=== PATIENT | female | born 1940 | race Caucasian/White ===

== ENCOUNTER 2017-09-29 18:35 | Emergency (ER) | payer OTHER ==
[~2017-09-29] VITALS: Ht 162.6 cm; Wt 80.8 kg
[~2017-09-29 18:35] MED LIST: ASPI-183 PO; BIOT1SUB SL; CULT10CA4 PO; ESTR1 PO; HYDR25TA5 PO; LOTR5CAP2 PO; LOVA40TA PO; MEDR2.5T2 PO; MEGA RED PO; META28.34 PO; MULT-6 PO; PAXI10TA8 PO; POTA550T2 PO; TRAM50TA PO
[2017-09-29 18:53] VITALS: BP 106/67; PULSE 87; RESP 16; TEMP 98.9; O2SAT 96
--- NOTE | 2017-09-29 19:02 | PD ---
HPI Chief Complaint: Head Injury Time Seen by Provider: 19:02 Travel History International Travel<30 days: No Contact w/Intl Traveler<30days: No Traveled to known affect area: No History of Present Illness HPI 77-year-old female came to the emergency room with history of headache, fogginess and some dizziness that has been going on for past almost one week. Patient vomited couple times as well during this time. Patient says that about 1 week ago she had fallen because she tripped and landed on the back of her head. All the symptoms are started since then. Patient is on Eliquis and is concerned if she may have had any intracranial bleed. Her back of the head has been sore although she does not feel any bumps. Vital signs were stable. No history of any syncopal episode. [facility]LY [facility] Past Medical History Narrative Medical List of her past medical, surgical, social and family history is reviewed from the nursing note. Hx Anticoagulant Therapy: Yes (ELIQUIS) Arthritis: Yes Depression: Yes Cancer: No Cardiovascular Problems: Yes (HTN, AFIB) High Cholesterol: Yes Diabetes: No Diminished Hearing: No Glaucoma: No Hepatitis: No Hiatal Hernia: No Hypertension: Yes Thyroid Disease: No Dilation and Curettage (D&C): Yes Past Surgical History Section: Yes Gynecologic Surgery: Yes (D & C) Joint Replacement: Yes Pacemaker: No Other Surgery: Yes Social History Alcohol Use: Yes (WINE DAILY) Tobacco Use: No (QUIT 10 YRS) Substance Use: No Allergies-Medications (Allergen,Severity, Reaction): Coded Allergies: propranolol (Unverified Adverse Reaction, Intermediate, GASTRITIS, 09/29/17 ) Comments List of her allergies reviewed from the nursing note Reported Meds & Prescriptions Reported Meds & Active Scripts Active Reported One Daily-Minerals (Multiple Vitamins W/ Minerals) 1 Tab 1 Tab PO DAILY Eliquis (Apixaban) 5 Mg Tab 5 Mg PO BID Lovastatin 40 Mg Tab 40 Mg PO DAILY Lotrel (Amlodipine-Benazepril) 5-10 Mg Cap 1 Cap PO DAILY Hydrochlorothiazide 25 Mg Tab 25 Mg PO DAILY Metamucil Smooth Texture (Psyllium Hydrophilic Mucilloid) 28.3 % Pow 1 Scoop PO DAILY 1 rounded TEASPOON in 8 oz of liquid at the first sign of irregularity. Culturelle (Lactobacillus Rhamnosus (GG)) 10 B Cell Cap 1 Cap PO DAILY Narrative Medication List of her home medications reviewed from the nursing note. Review of Systems Except as stated in HPI: all other systems reviewed are Neg Neurologic: Positive: Dizziness, Syncope Physical Exam Narrative GENERAL: Awake, alert, mild distress SKIN: Focused skin assessment warm/dry. HEAD: Atraumatic. Normocephalic. EYES: Pupils equal and round. No scleral icterus. No injection or drainage. ENT: No nasal bleeding or discharge. Mucous membranes pink and moist. NECK: Trachea midline. No JVD. No cervical point tenderness CARDIOVASCULAR: Regular rate and rhythm. No murmur appreciated. RESPIRATORY: No accessory muscle use. Clear to auscultation. Breath sounds equal bilaterally. GASTROINTESTINAL: Abdomen soft, non-tender, nondistended. Hepatic and splenic margins not palpable. MUSCULOSKELETAL: No obvious deformities. No clubbing. No cyanosis. No edema. NEUROLOGICAL: Awake and alert. No obvious cranial nerve deficits. Motor grossly within normal limits. Normal speech. PSYCHIATRIC: Appropriate mood and affect; insight and judgment normal. Data Data Last Documented VS Vital Signs Date Time Temp Pulse Resp B/P (MAP) Pulse Ox O2 Delivery O2 Flow Rate FiO2 09/29/17 18:53 98.9 87 16 106/67 (80) [address] Brain W/O Iv Contrast(Rout) (09/29/17 ) Ed Discharge Order (09/29/17 20:51) MDM Medical Decision Making Medical Screen Exam Complete: Yes Emergency Medical Condition: Yes Medical Record Reviewed: Yes Differential Diagnosis Intracranial bleed, postconcussive headache Narrative Course 7:32 PM awaiting for the CT to be done and resulted. 8:[address] scan of the brain is negative for any intracranial bleed. I will discharge her home. Procedures EKG Prior to Arrival: No Diagnosis Primary Impression: Post-concussion headache Referrals: Primary Care Physician Additional Instructions: Drink lots of fluid, coffee and caffeinated beverages. Do not drink alcohol. Do not watch too much television, computer screen or smart phone screen and give rest to your eyes and brain. Follow-up with your primary care if symptoms do not improve in next 3-4 days. Limit taking Tylenol or Excedrin for headache. Take the medication instead prescribed to you for headache only if needed. Med/Other Pt SpecificInfo: Prescription(s) given Scripts Qkamikuvne-Cdedupyykcrhw-Fetlosyp (Fioricet) 50-300-40 Mg Cap 1 CAP PO Q4H Y for HEADACHE, #12 CAP 0 Refills Prov: Shannan Knox MD 09/29/17 Disposition: 01 DISCHARGE HOME Condition: Stable Shannan Knox MD September 29, 2017 19:02
[2017-09-29] MEDS ORDERED: APIX5TAB PO (19:11)
[2017-09-29] MEDS ORDERED: ONETAB22 PO (19:17)
--- NOTE | 2017-09-29 20:48 | RADRPT ---
EXAM DATE/TIME: 09/29/2017 19:42 [place] COMPARISON: No previous studies available for comparison. INDICATIONS : Patient fell hitting back of head one week ago, complains of headaches. RADIATION DOSE: 49.24 CTDIvol (mGy) MEDICAL HISTORY : Hypertension. Cardiovascular disease SURGICAL HISTORY : None. ENCOUNTER: Initial ACUITY: 1 week PAIN SCALE: 6/10 LOCATION: cranial TECHNIQUE: Multiple contiguous axial images were obtained of the head. Using automated exposure control and adj ustment of the mA and/or kV according to patient size, radiation dose was kept as low as reasonably a chievable to obtain optimal diagnostic quality images. DICOM format image data is available electro nically for review and comparison. FINDINGS: CEREBRUM: The ventricles are widened. No evidence of midline shift, mass lesion, hemorrhage or acute infarctio n. No extra-axial fluid collections are seen. POSTERIOR FOSSA: The cerebellum and brainstem are intact. The 4th ventricle is midline. The cerebellopontine angle i s unremarkable. EXTRACRANIAL: The visualized portion of the orbits is intact. SKULL: The calvaria is intact. No evidence of skull fracture. CONCLUSION: 1. No acute abnormality seen. 2. Atrophy. Capo Hemphill MD on September 29, 2017 at 20:44 Board Certified Radiologist. This report was verified electronically.
[2017-09-29] MEDS ORDERED: BUTA1CAP PO (20:53)
[2017-09-29 20:57] VITALS: BP 137/80; PULSE 78; RESP 18; O2SAT 97
== END 2017-09-29 21:06 | disposition home or self-care (01) ==
LOC: PHEFT 18:35
DX: F07.81 Postconcussional syndrome (principal); G44.309 Post-traumatic headache, unspecified, not intractable; I10 Essential (primary) hypertension; M19.90 Unspecified osteoarthritis, unspecified site; F32.9 Major depressive disorder, single episode, unspecified; I48.91 Unspecified atrial fibrillation; E78.00 Pure hypercholesterolemia, unspecified; Z87.891 Personal history of nicotine dependence; Z79.01 Long term (current) use of anticoagulants
CPT/HCPCS: 70450; 99283

== ENCOUNTER 2017-10-13 08:26 | Emergency (ER) | payer OTHER ==
[~2017-10-13] VITALS: Ht 162.6 cm; Wt 79.0 kg
[~2017-10-13 08:26] MED LIST changes: +APIX5TAB PO; -ASPI-183 PO; -BIOT1SUB SL; +BUTA1CAP PO; -ESTR1 PO; -MEDR2.5T2 PO; -MEGA RED PO; -MULT-6 PO; +ONETAB22 PO; -PAXI10TA8 PO; -POTA550T2 PO; -TRAM50TA PO
[2017-10-13 08:36] VITALS: BP 137/60; PULSE 98; RESP 18; TEMP 97.8; O2SAT 96
--- NOTE | 2017-10-13 08:54 | PD ---
HPI Chief Complaint: Pain: Acute or Chronic Time Seen by Provider: 08:52 Travel History International Travel<30 days: No Contact w/Intl Traveler<30days: No Traveled to known affect area: No History of Present Illness HPI Complaining of right foot pain worsening over the past 4 days that is worsening. Although the patient states that she does have severe arthritis and she usually receives shots to her feet this is a worse type of pain she has ever felt before. It also feels more like a burning pain and is very sensitive to touch. States allergy to propranolol Past medical history significant for wearing corrective lenses and bilateral hearing aids, hypercholesterolemia, atrial fibrillation on Eliquis, hypertension , PFSH Past Medical History Hx Anticoagulant Therapy: Yes (eliquis) Arthritis: Yes Atrial Fibrillation: Yes (on Eliquis) Depression: Yes Cancer: No Cardiovascular Problems: Yes High Cholesterol: Yes Diabetes: No Diminished Hearing: Yes (bilat hearing aids) Glaucoma: No Hepatitis: No Hiatal Hernia: No Hypertension: Yes Thyroid Disease: No : 4 Para: 3 Miscarriage: 1 Dilation and Curettage (D&C): Yes Past Surgical History Section: Yes Gynecologic Surgery: Yes (D & C) Joint Replacement: Yes Pacemaker: No Other Surgery: Yes Social History Alcohol Use: Yes (WINE DAILY) Tobacco Use: No (QUIT 2005) Substance Use: No Allergies-Medications (Allergen,Severity, Reaction): Coded Allergies: propranolol (Unverified Adverse Reaction, Intermediate, GASTRITIS, 10/13/17 ) Reported Meds & Prescriptions Reported Meds & Active Scripts Active Fioricet (Hxfnittilv-Kshdmifqwjkmr-Jsqkorff) 50-300-40 Mg Cap 1 Cap PO Q4H PRN Reported One Daily-Minerals (Multiple Vitamins W/ Minerals) 1 Tab 1 Tab PO DAILY Eliquis (Apixaban) 5 Mg Tab 5 Mg PO BID Lovastatin 40 Mg Tab 40 Mg PO DAILY Lotrel (Amlodipine-Benazepril) 5-10 Mg Cap 1 Cap PO DAILY Hydrochlorothiazide 25 Mg Tab 25 Mg PO DAILY Metamucil Smooth Texture (Psyllium Hydrophilic Mucilloid) 28.3 % Pow 1 Scoop PO DAILY 1 rounded TEASPOON in 8 oz of liquid at the first sign of irregularity. Culturelle (Lactobacillus Rhamnosus (GG)) 10 B Cell Cap 1 Cap PO DAILY Review of Systems General / Constitutional: No: Fever Eyes: No: Visual changes HENT: No: Headaches Cardiovascular: No: Chest Pain or Discomfort Respiratory: No: Shortness of Breath Gastrointestinal: No: Abdominal Pain Genitourinary: No: Dysuria Musculoskeletal: Positive: Pain (Right foot) Skin: No Rash Neurologic: No: Weakness Psychiatric: No: Depression Endocrine: No: Polydipsia Hematologic/Lymphatic: No: Easy Bruising Physical Exam Narrative GENERAL: SKIN: Warm and dry. HEAD: Atraumatic. Normocephalic. EYES: Pupils equal and round. No scleral icterus. No injection or drainage. ENT: No nasal bleeding or discharge. Mucous membranes pink and moist. NECK: Trachea midline. No JVD. CARDIOVASCULAR: Regular rate and rhythm. RESPIRATORY: No accessory muscle use. Clear to auscultation. Breath sounds equal bilaterally. GASTROINTESTINAL: Abdomen soft, non-tender, nondistended. MUSCULOSKELETAL: Extremities without clubbing, cyanosis, or edema. No obvious deformities. NEUROLOGICAL: Awake and alert. No obvious cranial nerve deficits. Motor grossly within normal limits. Five out of 5 muscle strength in the arms and legs. Normal speech. PSYCHIATRIC: Appropriate mood and affect; insight and judgment normal. Data Data Last Documented VS Vital Signs Date Time Temp Pulse Resp B/P (MAP) Pulse Ox O2 Delivery O2 Flow Rate FiO2 10/13/17 13:13 92 16 131/74 (93) 96 Room Air 10/13/17 08:36 97.8 Orders Orders Electrocardiogram (10/13/17 09:06) Basic Metabolic Panel (Bmp) (10/13/17 09:06) B-Type Natriuretic Peptide (10/13/17 09:06) Complete Blood Count With Diff (10/13/17 09:06) Prothrombin Time / Inr (Pt) (10/13/17 09:06) Act Partial Throm Time (Ptt) (10/13/17 09:06) Troponin I (10/13/17 09:06) Ecg Monitoring (10/13/17 09:06) Bilateral Bp Monitoring (10/13/17 09:06) Iv Access Insert/Monitor (10/13/17 09:06) Oximetry (10/13/17 09:06) Oxygen Administration (10/13/17 09:06) Sodium Chloride 0.9% Flush (Ns Flush) (10/13/17 09:15) Cta Runoff W Iv Contrast W 3d (10/13/17 ) Morphine Inj (Morphine Inj) (10/13/17 10:45) Potassium Chloride Eff (K-Lyte Cl Eff) (10/13/17 10:45) Iohexol 350 Inj (Omnipaque 350 Inj) (10/13/17 11:48) Morphine Inj (Morphine Inj) (10/13/17 13:15) Potassium Chloride Eff (K-Lyte Cl Eff) (10/13/17 13:15) Labs Laboratory Tests Test 10/13/17 09:40 White Blood Count 11.7 TH/MM3 Red Blood Count 4.15 MIL/MM3 Hemoglobin 13.3 GM/DL Hematocrit 38.9 % Mean Corpuscular Volume 93.9 FL Mean Corpuscular Hemoglobin 32.0 PG Mean Corpuscular Hemoglobin Concent 34.1 % Red Cell Distribution Width 13.4 % Platelet Count 461 TH/MM3 Mean Platelet Volume 7.9 FL Neutrophils (%) (Auto) 83.0 % Lymphocytes (%) (Auto) 9.1 % Monocytes (%) (Auto) 7.0 % Eosinophils (%) (Auto) 0.3 % Basophils (%) (Auto) 0.6 % Neutrophils # (Auto) 9.7 TH/MM3 Lymphocytes # (Auto) 1.1 TH/MM3 Monocytes # (Auto) 0.8 TH/MM3 Eosinophils # (Auto) 0.0 TH/MM3 Basophils # (Auto) 0.1 TH/MM3 CBC Comment DIFF FINAL Differential Comment Prothrombin Time 10.2 SEC Prothromb Time International Ratio 1.0 RATIO Activated Partial Thromboplast Time 24.1 SEC Blood Urea Nitrogen 21 MG/DL Creatinine 0.71 MG/DL Random Glucose 115 MG/DL Calcium Level 8.5 MG/DL Sodium Level 142 MEQ/L Potassium Level 2.9 MEQ/L Chloride Level 105 MEQ/L Carbon Dioxide Level 28.8 MEQ/L Anion Gap 8 MEQ/L Estimat Glomerular Filtration Rate 79 ML/MIN Troponin I LESS THAN 0.02 NG/ML B-Type Natriuretic Peptide 187 PG/ML [facility] Medical Decision Making Medical Screen Exam Complete: Yes Emergency Medical Condition: Yes Medical Record Reviewed: Yes Interpretation(s) Atrial fibrillation rhythm, rate around the 90s, no evidence of any ST elevation OR, however there are some significant Q waves on 3 and aVF as well as nonspecific ST-T wave changes Differential Diagnosis Neuropathy versus fracture versus arthritic pain versus arterial thromboembolism Narrative Course CBC shows reactive leukocytosis but without any left shift, no anemia, normal platelet count. Coagulation profile is within normal limits First set of cardiac enzymes are negative Kidney function is within normal limits Electrolytes are all within normal limits with exception of potassium at 2.9. This may be the cause of the patient's sharp crampy-like pain. CT of the aorta with runoff read by radiologist as no significant aortic occlusive disease or iliac inflow stenosis. Mild stenosis of the right anterior tibial and distal tibioperoneal arteries otherwise intact 3 vessel runoff to the feet bilaterally. Mild bilateral scattered SFA plaque without significant flow-limiting stenosis Diagnosis Primary Impression: Neuropathy Additional Impression: Symptomatic hypokalemia Patient Instructions: General Instructions, Hypokalemia (ED), Peripheral Neuropathy (ED) Scripts Oxycodone-Acetaminophen (Percocet) 5-325 mg Tab 1 TAB PO Q6H Y for PAIN, #12 TAB 0 Refills Prov: Lg Zarco MD 10/13/17 Potassium Chloride ER (Potassium Chloride ER) 20 Meq Tab 40 MEQ PO BID for Electrolyte Replacement for 5 Days, #20 TAB 0 Refills Prov: Lg Zarco MD 10/13/17 Disposition: 01 DISCHARGE HOME Condition: Stable Lg Zarco MD October 13, 2017 08:54
[2017-10-13] MEDS ORDERED: SODIUM CHLORIDE 0.9% FLUSH 10 ML FLUSH IVF PRN (09:15)
[2017-10-13 09:46] VITALS: RESP 16; O2SAT 96
[2017-10-13 09:51] LABS: AUTOMATED NEUTROPHIL # 9.7 TH/MM3 (1.8-7.7); BASOPHIL # 0.1 TH/MM3 (0-0.2); BASOPHIL % 0.6 % (0.0-2.0); EOSINOPHIL % 0.3 % (0.0-4.0); HEMATOCRIT 38.9 % (35.0-46.0); HEMOGLOBIN 13.3 GM/DL (11.6-15.3); LYMPH % 9.1 % (9.0-44.0); LYMPHOCYTE # 1.1 TH/MM3 (1.0-4.8); MEAN CELL VOLUME 93.9 FL (80.0-100.0); MEAN CORPUSCULAR HGB CONC 34.1 % (32.0-36.0); MEAN PLATELET VOLUME 7.9 FL (7.0-11.0); MONOCYTE # 0.8 TH/MM3 (0-0.9); PLATELET COUNT 461 TH/MM3 (150-450); RED BLOOD COUNT 4.15 MIL/MM3 (4.00-5.30); RED CELL DISTRIBUTION WIDTH 13.4 % (11.6-17.2); WHITE BLOOD COUNT 11.7 TH/MM3 (4.0-11.0)
[2017-10-13 09:52] VITALS: BP 121/62; PULSE 94; RESP 16; O2SAT 95
[2017-10-13 10:02] LABS: PROTHROMBIN TIME - PATIENT 10.2 SEC (9.8-11.6)
[2017-10-13 10:16] LABS: BICARBONATE 28.8 MEQ/L (21.0-32.0)
[2017-10-13 10:17] LABS: CALCIUM 8.5 MG/DL (8.5-10.1); GLUCOSE,RANDOM 115 MG/DL (74-106)
[2017-10-13 10:20] LABS: CHLORIDE 105 MEQ/L (98-107); CREATININE 0.71 MG/DL (0.50-1.00); GLOMERULAR FILTRATION RATE 79 ML/MIN (>89); SODIUM (NA) 142 MEQ/L (136-145)
[2017-10-13 10:30] LABS: BLOOD UREA NITROGEN 21 MG/DL (7-18); TROPONIN I LESS THAN 0.02 NG/ML (0.02-0.05)
[2017-10-13] MEDS ORDERED: POTASSIUM CHLORIDE 25 MEQ EFFERVESCENT TAB PO ONE ×2 (10:45→13:15)
[2017-10-13] MEDS ORDERED: MORPHINE SULFATE 2 MG/ML SYRINGE IV PUSH ONE ×2 (10:45→13:15)
[2017-10-13] MEDS ORDERED: IOHEXOL 350 MG/ML 10 ML VIAL (for RAD DIAG) IVCONTRAST ONE (11:48)
[2017-10-13 13:13] VITALS: BP 131/74; PULSE 92; RESP 16; O2SAT 96
--- NOTE | 2017-10-13 13:38 | RADRPT ---
EXAM DATE: 10/13/2017 1:01 PM EDT AGE/SEX: 77 years / Female INDICATIONS: Right foot pain. No injury. CLINICAL DATA: This is the patient's initial encounter. Patient reports that signs and symptoms have been present for 2 days and indicates a pain score of 10/10. MEDICAL/SURGICAL HISTORY: Cardiovascular disease. Hypertension. Arthritis. section. Bila teral knee replacements. RADIATION DOSE: 12.72 CTDI (mGy) COMPARISON: [facility], CT ABDOMEN & PELVIS W CONTRAST, 06/28/2010. . TECHNIQUE: Volumetric scanning was performed using a multi-row detector CT scanner during bolus infu jasvir of 100 ml Omnipaque 350 (iohexol) nonionic water-soluble contrast as a single exam dose. The data was post processed with a variety of visualization algorithms including full volume maximum inte nsity projection, multi-planar sliding thin slab reformation, curved planar reformation, and surface rendering techniques. Using automated exposure control and adjustment of the mA and/or kV according to patient size, radiation dose was kept as low as reasonably achievable to obtain optimal diagnostic quality images. FINDINGS: Angiographic Findings: Abdominal Aorta: Moderate distal aortic calcified plaque without significant flow-limiting stenosis or aneurysm. Renal Arteries: Single bilateral renal arteries with mild stenosis of the origins secondary to calcif ied plaque. Mesenteric Arteries: Bulky plaque at the origin of the celiac artery with resultant mild to moderate stenosis. Plaque at the origin of the SMA with resultant mild stenosis. SHANNA is patent. Right side: Inflow: Diffuse mild calcified plaque without significant flow-limiting stenosis. Internal iliac is p atent. External iliac is patent. Mild eccentric plaque in the proximal common femoral artery with mi ld stenosis. Outflow: The profunda is patent. Scattered calcified plaque in the SFA with mild stenosis distally ne ar the abductor canal. Popliteal artery is partially obscured by beam hardening artifact from knee ar throplasty. Visualized portions are patent. Runoff: Calcified plaque at the origin of the anterior tibial artery and in the distal tibioperoneal trunk with resultant mild stenosis. Otherwise, three-vessel runoff to the foot. Left side: Inflow: Diffuse mild calcified plaque without significant flow-limiting stenosis. Internal iliac is p atent. External iliac is patent. Minimal common femoral artery calcified plaque without stenosis. Outflow: The profunda is patent. Minimal scattered SFA plaque without significant flow-limiting steno sis. Popliteal artery is partially obscured by beam hardening artifact from knee arthroplasty. Visual ized portion are patent. Runoff: Three vessel runoff. General Findings: Evaluation is limited by arterial phase technique. LOWER LUNGS: Extreme lung bases are clear. LIVER: Visualized portions again demonstrate a 4.3 cm cyst in the posterior right lobe. SPLEEN: Homogeneous density without enlargement. PANCREAS: There is a stable 7 mm cystic lesion in the head of the pancreas. Pancreas is stable in ap pearance. KIDNEYS: Kidneys demonstrate symmetrical enhancement and are symmetrical in size without evidence fo r radiopaque renal calculi or hydronephrosis. ADRENAL GLANDS: Unremarkable. BOWEL/MESENTERY: Moderate sigmoid diverticulosis and scattered colonic diverticula. No significant a ssociated inflammatory change. Bowel is otherwise unremarkable. No free fluid or drainable fluid chriss ections. ABDOMINAL WALL: Intact. RETROPERITONEUM: No evidence of adenopathy in the retrocrural, para-aortic, or deep pelvic regions. BLADDER: Contours are smooth. REPRODUCTIVE: Uterus is not visualized and there is a pessary place. INGUINAL: The inguinal region is unremarkable without evidence of adenopathy. BONY STRUCTURES: Degenerative changes of the lower lumbar spine. Bilateral knee arthroplasties. CONCLUSION: 1. No significant aortic occlusive disease or iliac inflow stenosis. 2. Mild bilateral scattered SFA plaque without significant flow-limiting stenosis. 3. Mild stenosis of the right anterior tibial and distal tibial peroneal arteries. Otherwise, intact three-vessel runoff to the feet bilaterally. 4. 7 mm cystic lesion in the pancreatic head stable from 2016 CT exam but new since 2011 CT examinat ion. This lesion is too small to fully characterize but may reflect a pseudocyst from interval pancre atitis. Small low-grade cystic neoplasm cannot be excluded. 5. Additional ancillary findings, as above. Electronically signed by: Slim Belcher MD 10/13/2017 1:36 PM EDT
[2017-10-13] MEDS ORDERED: POTA-163 PO (13:58)
[2017-10-13] MEDS ORDERED: PERC5TAB12 PO (13:59)
[2017-10-13 14:00] VITALS: BP 124/72; PULSE 80; RESP 16; O2SAT 96
--- NOTE | 2017-10-14 08:32 | EKG ---
Date Performed: 10/13/2017 Time Performed: 09:27:28 PTAGE: 77 years EKG: ATRIAL FIBRILLATION INDETERMINATE AXIS CONSIDER NFERIOR MYOCARDIAL INFARCTION, AGE INDETERM INATE ABNORMAL ECG PREVIOUS TRACING : 12/03/2009 10.11 DOCTOR: Larry Mccain Interpretating Date/Time 10/14/2017 08:31:16
== END 2017-10-13 14:22 | disposition home or self-care (01) ==
LOC: PHED 08:26
DX: G62.9 Polyneuropathy, unspecified (principal); E87.6 Hypokalemia; R94.31 Abnormal electrocardiogram [ECG] [EKG]; E78.00 Pure hypercholesterolemia, unspecified; I48.91 Unspecified atrial fibrillation; I10 Essential (primary) hypertension; M19.90 Unspecified osteoarthritis, unspecified site; F32.9 Major depressive disorder, single episode, unspecified; Z87.891 Personal history of nicotine dependence
CPT/HCPCS: 75635; 80048; 83880; 84484; 85025; 85610; 85730; 93005; 96374; 96376; 99285; J2270; Q9967

== ENCOUNTER 2017-10-20 05:45 | Emergency (ER) | payer OTHER ==
[~2017-10-20] VITALS: Ht 162.6 cm; Wt 77.8 kg
[~2017-10-20 05:45] MED LIST changes: +PERC5TAB12 PO; +POTA-163 PO
[2017-10-20 05:57] VITALS: BP_SYST 102; BP_SYST 153; BP_DIAS 82; PULSE 102; RESP 18; TEMP 98.2; O2SAT 96
[2017-10-20 06:07] VITALS: BP_SYST 153; BP_SYST 156; BP_DIAS 82; BP_DIAS 86
--- NOTE | 2017-10-20 06:16 | PD ---
HPI Chief Complaint: Chest Pain Time Seen by Provider: 05:56 Travel History International Travel<30 days: No Contact w/Intl Traveler<30days: No Traveled to known affect area: No History of Present Illness HPI 77yo F with PMH of HTN, afib on eliquis presents to the ED with c/o chest pain today. Said it started in her right arm and then went to her right chest. Pain is sharp, intermittent. Associated with dizziness, sob and generalized weakness. Denies any fever, cough, n/v, abdominal pain, focal weakness or numbness. Said lightheadedness is worst with standing up and better lying down. Pt was just here for right foot pain 10/13/17 and her potassium was found to be low at 2.9 so was discharge with KCl and percocet. Said she took half of the percocet yesterday and helped a little. Pt was also here on 09/29 for head injury and had negative CT brain. Patient said she had a nuclear stress by Dr. Cortez on 10/11 and it was normal. PFSH Past Medical History Hx Anticoagulant Therapy: Yes (ELIQUIS) Arthritis: Yes Atrial Fibrillation: Yes (on Eliquis) Depression: Yes Cancer: No Cardiovascular Problems: Yes (AFIB) High Cholesterol: Yes Diabetes: No Diminished Hearing: Yes (bilat hearing aids) Glaucoma: No Hepatitis: No Hiatal Hernia: No Hypertension: Yes Respiratory: No Thyroid Disease: No : 4 Para: 3 Miscarriage: 1 Dilation and Curettage (D&C): Yes Past Surgical History Section: Yes Gynecologic Surgery: Yes (D & C) Joint Replacement: Yes Pacemaker: No Other Surgery: Yes Social History Alcohol Use: Yes (WINE DAILY) Tobacco Use: No (QUIT 2005) Substance Use: No Allergies-Medications (Allergen,Severity, Reaction): Coded Allergies: propranolol (Verified Adverse Reaction, Intermediate, GASTRITIS, 10/20/17) Reported Meds & Prescriptions Reported Meds & Active Scripts Active Percocet (Oxycodone-Acetaminophen) 5-325 mg Tab 1 Tab PO Q6H PRN Potassium Chloride ER (Potassium Chloride) 20 Meq Tab 40 Meq PO BID 5 Days Fioricet (Vsdmyvjpzh-Pkeovkgpskkpw-Tnwuzfvi) 50-300-40 Mg Cap 1 Cap PO Q4H PRN Reported One Daily-Minerals (Multiple Vitamins W/ Minerals) 1 Tab 1 Tab PO DAILY Eliquis (Apixaban) 5 Mg Tab 5 Mg PO BID Lovastatin 40 Mg Tab 40 Mg PO DAILY Lotrel (Amlodipine-Benazepril) 5-10 Mg Cap 1 Cap PO DAILY Hydrochlorothiazide 25 Mg Tab 25 Mg PO DAILY Metamucil Smooth Texture (Psyllium Hydrophilic Mucilloid) 28.3 % Pow 1 Scoop PO DAILY 1 rounded TEASPOON in 8 oz of liquid at the first sign of irregularity. Culturelle (Lactobacillus Rhamnosus (GG)) 10 B Cell Cap 1 Cap PO DAILY Review of Systems Except as stated in HPI: all other systems reviewed are Neg Physical Exam Narrative GENERAL: 77yo F in mild distress. SKIN: Focused skin assessment warm/dry. HEAD: Atraumatic. Normocephalic. EYES: Pupils equal and round at 3mm. EOMI. ENT: No nasal bleeding or discharge. Mucous membranes pink and moist. NECK: Trachea midline. No JVD. CARDIOVASCULAR: Regular rate and rhythm. No murmur appreciated. RESPIRATORY: No accessory muscle use. Clear to auscultation. Breath sounds equal bilaterally. GASTROINTESTINAL: Abdomen soft, non-tender, nondistended. MUSCULOSKELETAL: No obvious deformities. No clubbing. No cyanosis. No edema. NEUROLOGICAL: Awake and alert. No obvious cranial nerve deficits. Motor grossly within normal limits in all extremities. Sensation intact. Normal speech. PSYCHIATRIC: Appropriate mood and affect; insight and judgment normal. Data Data Last Documented VS Vital Signs Date Time Temp Pulse Resp B/P (MAP) Pulse Ox O2 Delivery O2 Flow Rate FiO2 10/20/17 09:45 10/20/17 09:28 18 10/20/17 08:43 85 97 Room Air 10/20/17 05:57 98.2 Orders Orders Basic Metabolic Panel (Bmp) (10/20/17 05:57) Complete Blood Count With Diff (10/20/17 05:57) Prothrombin Time / Inr (Pt) (10/20/17 05:57) Act Partial Throm Time (Ptt) (10/20/17 05:57) Troponin I (10/20/17 05:57) Chest, Single Ap (10/20/17 05:57) Bilateral Bp Monitoring (10/20/17 05:57) B-Type Natriuretic Peptide (10/20/17 06:01) Orthostatic Blood Pressure (10/20/17 06:35) Urinalysis - C+S If Indicated (10/20/17 06:35) Sodium Chlorid 0.9% 500 Ml Inj (Ns 500 M (10/20/17 06:45) Ketorolac Inj (Toradol Inj) (10/20/17 06:45) Potassium Chloride (Kcl) (10/20/17 07:00) Urine Culture (10/20/17 06:30) Troponin I (10/20/17 07:31) Ct Pulmonary Angiogram (10/20/17 07:31) Iohexol 350 Inj (Omnipaque 350 Inj) (10/20/17 08:08) Acetaminophen (Tylenol) (10/20/17 08:30) Electrocardiogram (10/20/17 05:54) Labs Laboratory Tests Test 10/20/17 06:00 10/20/17 06:30 10/20/17 08:40 White Blood Count 6.5 TH/MM3 Red Blood Count 4.56 MIL/MM3 Hemoglobin 14.1 GM/DL Hematocrit 43.0 % Mean Corpuscular Volume 94.3 FL Mean Corpuscular Hemoglobin 30.9 PG Mean Corpuscular Hemoglobin Concent 32.7 % Red Cell Distribution Width 13.3 % Platelet Count 399 TH/MM3 Mean Platelet Volume 8.5 FL Neutrophils (%) (Auto) 49.2 % Lymphocytes (%) (Auto) 38.5 % Monocytes (%) (Auto) 9.0 % Eosinophils (%) (Auto) 2.3 % Basophils (%) (Auto) 1.0 % Neutrophils # (Auto) 3.2 TH/MM3 Lymphocytes # (Auto) 2.5 TH/MM3 Monocytes # (Auto) 0.6 TH/MM3 Eosinophils # (Auto) 0.1 TH/MM3 Basophils # (Auto) 0.1 TH/MM3 CBC Comment DIFF FINAL Differential Comment Prothrombin Time 10.5 SEC Prothromb Time International Ratio 1.0 RATIO Activated Partial Thromboplast Time 26.1 SEC Blood Urea Nitrogen 16 MG/DL Creatinine 0.67 MG/DL Random Glucose 113 MG/DL Calcium Level 9.0 MG/DL Sodium Level 139 MEQ/L Potassium Level 3.4 MEQ/L Chloride Level 104 MEQ/L Carbon Dioxide Level 26.2 MEQ/L Anion Gap 9 MEQ/L Estimat Glomerular Filtration Rate 85 ML/MIN Troponin I LESS THAN 0.02 NG/ML LESS THAN 0.02 NG/ML B-Type Natriuretic Peptide 195 PG/ML Urine Collection Type CLEAN CATCH Urine Color YELLOW Urine Turbidity SL CLOUDY Urine pH 7.0 Urine Specific [place] 1.015 Urine Protein NEG mg/dL Urine Glucose (UA) NEG mg/dL Urine Ketones NEG mg/dL Urine Occult Blood SMALL Urine Nitrite NEG Urine Bilirubin NEG Urine Urobilinogen 0.2 MG/DL Urine Leukocyte Esterase SMALL Urine RBC 0-3 /hpf Urine WBC 9-14 /hpf Urine WBC Clumps FEW Urine Squamous Epithelial Cells > 8 /hpf Urine Amorphous Sediment FEW Urine Bacteria MOD /hpf Microscopic Urinalysis Comment CULTURE INDICATED Urine Collection Time 0630 [facility] Medical Decision Making Medical Screen Exam Complete: Yes Emergency Medical Condition: Yes Interpretation(s) EKG: Afib at 97bpm. Low voltage. Mild ST depression V5-V6. TWI III. Grossly unchanged from EKG from 11/2009 Differential Diagnosis ACS vs. arrhythmia vs. dehydration vs. electrolyte abnormality vs. UTI Narrative Course 77yo F here with atypical chest pain, dizziness and generalized weakness. Pt walked for about 5 steps and had to sit by down because she was feeling lightheaded. Said she did not notice if she had worsening sob or chest pain with walking. Said chest pain comes and goes on its own. CXR showed no active disease. Mildly tortuous aorta. Labs reviewed, no leukocytosis. H/H normal. BMP unremarkable. Troponin and BNP pending. Orthostatic vital signs pending. Will give NS IVF 500cc and toradol. Pt's chest pain is very atypical and she just had a negative stress test. Will sign out to next team to follow up rest of labs including troponin and reevaluate. Diagnosis Primary Impression: Dizziness Lorenza Montes Oct 20, 2017 06:16
--- NOTE | 2017-10-20 06:19 | RADRPT ---
EXAM DATE: 10/20/2017 6:17 AM EDT AGE/SEX: 77 years / Female INDICATIONS: Chest pain for 2 hours CLINICAL DATA: This is the patient's initial encounter. Patient reports that signs and symptoms have been present for 2 days and indicates a pain score of 5/10. MEDICAL/SURGICAL HISTORY: . Cardiovascular disease. Hypertension None. COMPARISON: No prior exams available for comparison. FINDINGS: A single AP view of the chest demonstrates the lungs to be symmetrically aerated without evidence of mass, infiltrate or effusion. The cardiomediastinal contours are unremarkable. Osseous structures a re intact. CONCLUSION: No active disease. Mildly tortuous aorta. Electronically signed by: Adrian Jolly MD 10/20/2017 6:18 AM EDT
[2017-10-20 06:34] LABS: CHLORIDE 104 MEQ/L (98-107); SODIUM (NA) 139 MEQ/L (136-145)
[2017-10-20 06:38] LABS: BICARBONATE 26.2 MEQ/L (21.0-32.0); BLOOD UREA NITROGEN 16 MG/DL (7-18); GLUCOSE,RANDOM 113 MG/DL (74-106)
[2017-10-20 06:39] LABS: PROTHROMBIN TIME - PATIENT 10.5 SEC (9.8-11.6)
[2017-10-20 06:41] LABS: AUTOMATED NEUTROPHIL # 3.2 TH/MM3 (1.8-7.7); BASOPHIL # 0.1 TH/MM3 (0-0.2); CREATININE 0.67 MG/DL (0.50-1.00); EOSINOPHIL # 0.1 TH/MM3 (0-0.4); EOSINOPHIL % 2.3 % (0.0-4.0); GLOMERULAR FILTRATION RATE 85 ML/MIN (>89); HEMOGLOBIN 14.1 GM/DL (11.6-15.3); LYMPH % 38.5 % (9.0-44.0); LYMPHOCYTE # 2.5 TH/MM3 (1.0-4.8); MEAN CELL VOLUME 94.3 FL (80.0-100.0); MEAN CORPUSCULAR HEMOGLOBIN 30.9 PG (27.0-34.0); MEAN CORPUSCULAR HGB CONC 32.7 % (32.0-36.0); MEAN PLATELET VOLUME 8.5 FL (7.0-11.0); MONOCYTE # 0.6 TH/MM3 (0-0.9); NEUT % 49.2 % (16.0-70.0); PLATELET COUNT 399 TH/MM3 (150-450); RED BLOOD COUNT 4.56 MIL/MM3 (4.00-5.30); RED CELL DISTRIBUTION WIDTH 13.3 % (11.6-17.2); WHITE BLOOD COUNT 6.5 TH/MM3 (4.0-11.0)
[2017-10-20 06:45] LABS: TROPONIN I LESS THAN 0.02 NG/ML (0.02-0.05)
[2017-10-20] MEDS ORDERED: KETOROLAC TROMETHAMINE 30 MG/ML (IVP) VIAL IV PUSH ONE (06:45)
[2017-10-20] MEDS ORDERED: SODIUM CHLORID 0.9% 500 ML INJ 500 ML IV ONE (06:45)
[2017-10-20 06:50] LABS: BILIRUBIN, URINE NEG (NEG); BLOOD, URINE SMALL (NEG); GLUCOSE,URINE NEG (NEG); KETONE, URINE NEG (NEG); NITRITE,URINE NEG (NEG); URINE COLOR YELLOW (YELLW/STRAW); URINE LEUKOCYTE ESTERASE SMALL (NEG)
[2017-10-20] MEDS ORDERED: POTASSIUM CHLORIDE 20 MEQ CONTROLLED RELEASE TAB PO ONE (07:00)
[2017-10-20 07:06] LABS: AMORPHOUS SEDIMENT, URINE FEW; BACTERIA, URINE MOD /hpf; RBC, URINE 0-3 /hpf (0-3); SQUAMOUS EPITHELIAL CELL URINE > 8 /hpf (0-5); WHITE BLOOD CELL CLUMPS FEW
[2017-10-20 07:08] VITALS: BP_SYST 149; BP_SYST 156; BP_SYST 157; BP_DIAS 82; BP_DIAS 86; BP_DIAS 88; RESP 18
--- NOTE | 2017-10-20 07:35 | PD ---
Physical Exam Date Seen by Provider: Oct 20, 2017 Time Seen by Provider: 07:33 Narrative This 77-year-old female says that she has been having some pain since last night. It started last night there was with pain under the right arm. It is intermittent sharp pain. It seemed to move to the right side of the chest. She felt a bit short of breath and lightheaded with the pain. The pain would come on and will be quite bad for about an hour and then would subside. There is no history of trauma. She is on Eliquis for atrial fibrillation. She has a remote history of knee replacement. She is not aware of any blood clots in the past. She has had a fall 3 weeks ago and had some headache. She was here and had a CT of the head which was negative. She was here a week ago with pain in her foot. She says the foot was quite swollen she was not able to put weight on it. Her white count was elevated. She did have a CTA done which showed no blockage in the artery. It was thought that she was having pain secondary to neuropathy. Her potassium on that day was 2.9 and she has been put on a potassium replacement. She had a nuclear stress test done by her music therapist [employer] [facility] last week Data Data Last Documented VS Vital Signs Date Time Temp Pulse Resp B/P (MAP) Pulse Ox O2 Delivery O2 Flow Rate FiO2 10/20/17 08:43 85 18 160/71 (100) 97 Room Air 10/20/17 05:57 98.2 Orders Orders Basic Metabolic Panel (Bmp) (10/20/17 05:57) Complete Blood Count With Diff (10/20/17 05:57) Prothrombin Time / Inr (Pt) (10/20/17 05:57) Act Partial Throm Time (Ptt) (10/20/17 05:57) Troponin I (10/20/17 05:57) Chest, Single Ap (10/20/17 05:57) Bilateral Bp Monitoring (10/20/17 05:57) B-Type Natriuretic Peptide (10/20/17 06:01) Orthostatic Blood Pressure (10/20/17 06:35) Urinalysis - C+S If Indicated (10/20/17 06:35) Sodium Chlorid 0.9% 500 Ml Inj (Ns 500 M (10/20/17 06:45) Ketorolac Inj (Toradol Inj) (10/20/17 06:45) Potassium Chloride (Kcl) (10/20/17 07:00) Urine Culture (10/20/17 06:30) Troponin I (10/20/17 07:31) Ct Pulmonary Angiogram (10/20/17 07:31) Iohexol 350 Inj (Omnipaque 350 Inj) (10/20/17 08:08) Acetaminophen (Tylenol) (10/20/17 08:30) Electrocardiogram (10/20/17 05:54) Labs Laboratory Tests Test 10/20/17 06:00 10/20/17 06:30 10/20/17 08:40 White Blood Count 6.5 TH/MM3 Red Blood Count 4.56 MIL/MM3 Hemoglobin 14.1 GM/DL Hematocrit 43.0 % Mean Corpuscular Volume 94.3 FL Mean Corpuscular Hemoglobin 30.9 PG Mean Corpuscular Hemoglobin Concent 32.7 % Red Cell Distribution Width 13.3 % Platelet Count 399 TH/MM3 Mean Platelet Volume 8.5 FL Neutrophils (%) (Auto) 49.2 % Lymphocytes (%) (Auto) 38.5 % Monocytes (%) (Auto) 9.0 % Eosinophils (%) (Auto) 2.3 % Basophils (%) (Auto) 1.0 % Neutrophils # (Auto) 3.2 TH/MM3 Lymphocytes # (Auto) 2.5 TH/MM3 Monocytes # (Auto) 0.6 TH/MM3 Eosinophils # (Auto) 0.1 TH/MM3 Basophils # (Auto) 0.1 TH/MM3 CBC Comment DIFF FINAL Differential Comment Prothrombin Time 10.5 SEC Prothromb Time International Ratio 1.0 RATIO Activated Partial Thromboplast Time 26.1 SEC Blood Urea Nitrogen 16 MG/DL Creatinine 0.67 MG/DL Random Glucose 113 MG/DL Calcium Level 9.0 MG/DL Sodium Level 139 MEQ/L Potassium Level 3.4 MEQ/L Chloride Level 104 MEQ/L Carbon Dioxide Level 26.2 MEQ/L Anion Gap 9 MEQ/L Estimat Glomerular Filtration Rate 85 ML/MIN Troponin I LESS THAN 0.02 NG/ML LESS THAN 0.02 NG/ML B-Type Natriuretic Peptide 195 PG/ML Urine Collection Type CLEAN CATCH Urine Color YELLOW Urine Turbidity SL CLOUDY Urine pH 7.0 Urine Specific [place] 1.015 Urine Protein NEG mg/dL Urine Glucose (UA) NEG mg/dL Urine Ketones NEG mg/dL Urine Occult Blood SMALL Urine Nitrite NEG Urine Bilirubin NEG Urine Urobilinogen 0.2 MG/DL Urine Leukocyte Esterase SMALL Urine RBC 0-3 /hpf Urine WBC 9-14 /hpf Urine WBC Clumps FEW Urine Squamous Epithelial Cells > 8 /hpf Urine Amorphous Sediment FEW Urine Bacteria MOD /hpf Microscopic Urinalysis Comment CULTURE INDICATED Urine Collection Time 0630 [facility] Medical Record Reviewed: Yes Supervised Visit with BOLA: Yes Differential Diagnosis Differential includes pleurisy, musculoskeletal pain, atypical chest pain, pulmonary embolus Narrative Course Pulmonary embolus appears unlikely as she is on Eliquis however she does describe pleuritic pain with shortness of breath. For this reason I have ordered a CTA which has been done and is negative for pulmonary embolism. The pain is not at all suggestive of coronary artery disease. We have done a second troponin which is also negative. Patient got relief from initial dose of Toradol given second dose of Tylenol. The exact etiology of the pain has not been determined but life-threatening conditions have been ruled out. Believe the patient is stable for discharge. This may be pleurisy atypical musculoskeletal pain Diagnosis Primary Impression: Atypical chest pain Additional Instruction: Take Tylenol for pain, follow-up with Dr. Dunn Disposition: 01 DISCHARGE HOME Condition: Stable Pedro Luis Garcia MD Oct 20, 2017 07:35
[2017-10-20] MEDS ORDERED: IOHEXOL 350 MG/ML 10 ML VIAL (for RAD DIAG) IVCONTRAST ONE (08:08)
[2017-10-20] MEDS ORDERED: ACETAMINOPHEN 325 MG TAB PO ONE (08:30)
[2017-10-20 08:43] VITALS: BP 160/71; PULSE 85; RESP 18; O2SAT 97
--- NOTE | 2017-10-20 09:11 | RADRPT ---
EXAM DATE: 10/20/2017 8:07 AM EDT AGE/SEX: 77 years / Female INDICATIONS: Right chest pain radiating down right arm. Short of breath. General weakness. CLINICAL DATA: This is the patient's initial encounter. Patient reports that signs and symptoms have been present for 1 day and indicates a pain score of 7/10. MEDICAL/SURGICAL HISTORY: Cardiovascular disease. Hypertension. section. RADIATION DOSE: 12.81 CTDI (mGy) COMPARISON: No prior exams available for comparison. TECHNIQUE: Volumetric scanning was performed using a multi-row detector CT scanner during bolus infu jasvir of 75 ml Omnipaque 350 (iohexol) nonionic water-soluble contrast as a single exam dose. The bethany a was post processed with a variety of visualization algorithms including full volume maximum intensi ty projection and sliding thin slab reformation. Using automated exposure control and adjustment of the mA and/or kV according to patient size, radiation dose was kept as low as reasonably achievable t o obtain optimal diagnostic quality images. FINDINGS: Pulmonary Arteries: No filling defect is visualized through the segmental and some of the subsegment al level pulmonary arteries bilaterally. Lung: No effusion, consolidation, or pneumothorax is present. There is mild dependent atelectasis. N o concerning pulmonary nodule is visualized. Effusion: None. Mediastinum: Heart and great vessels demonstrate no acute finding. There is coronary artery calcific ation and a moderate to severe atherosclerotic disease of the aorta. Descending thoracic aorta measur es up to 3.2 cm. Other: Visualized upper abdominal structures demonstrate no acute finding. Axilla demonstrates no ly mphadenopathy. There are partially visualized hypodense thyroid nodules bilaterally measuring 1.3 cm on the right and 1.2 cm on the left. CONCLUSION: 1. No PE is identified. Additionally, no acute finding is identified to explain the clinical symptom s. 2. 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 Electronically signed by: Capo Tran MD 10/20/2017 9:09 AM EDT
[2017-10-20 09:28] VITALS: RESP 18
--- NOTE | 2017-10-20 15:32 | EKG ---
Date Performed: 10/20/2017 Time Performed: 05:54:18 PTAGE: 77 years EKG: ATRIAL FIBRILLATION INDETERMINATE AXIS LOW QRS VOLTAGE IN EXTREMITY LEADS NONSPECIFIC ST & T-WAVE ABNORMALITY ABNORMAL RHYTHM ECG INTERPRETATION BASED ON A DEFAULT AGE OF 40 YEARS Since the PREVIOUS TRACING , no significant change noted PREVIOUS TRACIN10/13/2017 09.27 DOCTOR: Leola Elizabeth Interpretating Date/Time 10/20/2017 15:30:44
== END 2017-10-20 09:46 | disposition home or self-care (01) ==
LOC: PHED 05:45
DX: R07.89 Other chest pain (principal); R42 Dizziness and giddiness; R06.02 Shortness of breath; R53.1 Weakness; I10 Essential (primary) hypertension; I48.91 Unspecified atrial fibrillation; E78.00 Pure hypercholesterolemia, unspecified; F32.9 Major depressive disorder, single episode, unspecified; Z87.891 Personal history of nicotine dependence
CPT/HCPCS: 71045; 71275; 80048; 81001; 83880; 84484; 85025; 85610; 85730; 87086; 93005; 96361; 96374; 99285; J1885; J7040; Q9967